=== PATIENT | male | born 1960 | race African-American/Black ===

== ENCOUNTER → 2018-12-15 | Outpatient (CLI) | payer OTHER ==
[~2018-12-15] MED LIST: ALEVE220 MG PO; AMBIEN 10MG10 MG PO; ASPIRIN 32325 MG/TA1 PO; CENTRUM SILVER1 TA1 PO; CIPRO 500MG TA500 MG PO; MULTIPLE VITAMI1 CAP PO; MULTIVITAMIN1 CTB PO; PERCOCET 500 MG1 TAB PO
== END ==
LOC: MHCPAIN 10:12
DX: G89.29 Other chronic pain (principal); M47.817 Spondylosis without myelopathy or radiculopathy, lumbosacral region; M54.16 Radiculopathy, lumbar region; M53.3 Sacrococcygeal disorders, not elsewhere classified; M79.18 Myalgia, other site
CPT/HCPCS: G0463

== ENCOUNTER → 2019-01-25 | Outpatient (CLI) | payer OTHER | LOC: MHCPAIN 08:48 | DX: G89.29 Other chronic pain (principal); M47.817 Spondylosis without myelopathy or radiculopathy, lumbosacral region; M54.16 Radiculopathy, lumbar region; M53.3 Sacrococcygeal disorders, not elsewhere classified; M79.18 Myalgia, other site | CPT/HCPCS: G0463 ==

== ENCOUNTER → 2020-07-14 | Outpatient (CLI) | payer OTHER | LOC: COL.RAD | DX: M76.892 Other specified enthesopathies of left lower limb, excluding foot (principal) ==

== ENCOUNTER 2022-04-19 10:41 | Day surgery (SDC) | payer OTHER ==
[~2022-04-19] VITALS: Ht 170.2 cm; Wt 101.3 kg
[2022-04-19] MEDS ORDERED: NORVASC 5MG5 MG/TAB PO (11:52)
[2022-04-19] MEDS ORDERED: CENTRUM SILVER1 TAB PO (11:52)
[2022-04-19] MEDS ORDERED: REMERON SOLTAB30 MG PO (11:52)
[2022-04-19 12:03] VITALS: BP 129/101; PULSE 74; TEMP 97.7
[2022-04-19 13:35] VITALS: BP 130/96; PULSE 74; TEMP 97.3
--- NOTE | 2022-04-19 13:35 | NUR ---
PATIENT ARRIVES VIA CART TO ROOM 2. ASSIST X 2 TO CHAIR. HE IS ALERT AND ORIENTED. VITAL SIGNS WNL. HE REQUESTS CRANBERRY JUICE AND A MUFFIN. WILL CONTINUE TO MONITOR.
== END 2022-04-19 14:30 | disposition home or self-care (01) ==
LOC: SDCO 10:41
DX: Z12.11 Encounter for screening for malignant neoplasm of colon (principal); K92.1 Melena; K64.1 Second degree hemorrhoids; K64.4 Residual hemorrhoidal skin tags; Z86.010 Personal history of colon polyps; Z79.899 Other long term (current) drug therapy
CPT/HCPCS: J2704; J3010; J7120